=== PATIENT | female | born 1955 | race African-American/Black ===

== ENCOUNTER 2020-02-07 13:50 | Emergency (ER) | payer MEDICAID ==
[~2020-02-07] VITALS: Ht 162.6 cm; Wt 63.5 kg
--- NOTE | 2020-02-07 14:15 | NUR ---
BILATERAL UPPER EXTREMITY X 3 DAYS. PT AAOX4, VSS. RR EVEN & UNLABORED. DENIES CP, SOB, DIZZINESS, N/V/D, WEAKNESS AT THIS TIME. PT SEEN & EVAL'D BY DR. DONOVAN, WILL CONT TO MONITOR.
--- NOTE | 2020-02-07 14:32 | NUR ---
LABS DRAWN BY [employer].
[2020-02-07 14:38] LABS: BASOPHILS % (AUTO) 0.5 % (0.0-2.0); EOSINOPHILS % (AUTO) 0.6 % (0.0-6.0); HEMATOCRIT 34 % (33-45); HEMOGLOBIN 11.1 g/dL (11.5-14.8); LYMPHOCYTES # (AUTO) 1.1 /CMM (0.8-4.8); LYMPHOCYTES % (AUTO) 32.4 % (20.0-44.0); MEAN CORPUSCULAR HGB CONC 33 g/dl (31.0-36.0); MEAN CORPUSCULAR VOLUME 84 fL (82-100); MONOCYTES # (AUTO) 0.3 /CMM (0.1-1.30); MONOCYTES % (AUTO) 9.9 % (2.0-12.0); NEUTROPHILS # (AUTO) 1.9 /CMM (1.8-8.9); NEUTROPHILS % (AUTO) 56.6 % (43.0-81.0); PLATELET COUNT (AUTO) 307 /CMM (150-450); RED BLOOD CELL COUNT(AUTO) 4.04 MIL/uL (4.0-5.2); WHITE BLOOD COUNT (AUTO) 3.4 K/uL (4.3-11.0)
[2020-02-07 14:45] LABS: CALCIUM, SERUM 9.1 mg/dL (8.5-10.1); CARBON DIOXIDE 29 mmol/L (21-32); CHLORIDE 104 mmol/L (98-107); CREATININE 0.8 mg/dL (0.6-1.3); GLUCOSE 78 mg/dL (74-106); SODIUM SERUM 141 mmol/L (136-145); UREA NITROGEN, BLOOD 14 mg/dL (7-18)
[2020-02-07 14:51] LABS: ALANINE AMINOTRANSFERASE 22 U/L (12-78); ALBUMIN 3.4 g/dL (3.4-5.0); ALKALINE PHOSPHATASE 72 U/L (46-116); ASPARTATE AMINOTRANSFERASE 18 U/L (15-37); BILIRUBIN,DIRECT 0.1 mg/dL (0.0-0.2); BILIRUBIN,TOTAL 0.4 mg/dL (0.2-1.0); TOTAL PROTEIN, SERUM 7.6 g/dL (6.4-8.2)
--- NOTE | 2020-02-07 15:38 | NUR ---
COVID TESTING DONE & SENT TO LAB. Patient discharged to home in stable condition. Written and verbal after care instructions given. Patient verbalizes understanding of instruction.
[2020-02-07 15:39] VITALS: BP 132/84
== END 2020-02-07 15:40 | disposition home or self-care (01) ==
LOC: ER 13:50
DX: G56.02 Carpal tunnel syndrome, left upper limb (principal); R91.8 Other nonspecific abnormal finding of lung field; Z20.828 Contact with and (suspected) exposure to other viral communicable diseases; G89.29 Other chronic pain; M54.9 Dorsalgia, unspecified
CPT/HCPCS: 36415; 71045; 80048; 80076; 84484; 85025; 93005; 99285; C9803; U0003

== ENCOUNTER 2020-04-22 17:52 | Emergency (ER) | payer MEDICAID ==
[~2020-04-22] VITALS: Ht 152.4 cm; Wt 61.2 kg
--- NOTE | 2020-04-22 18:09 | NUR ---
SHAWN GUZMAN AT BEDSIDE
--- NOTE | 2020-04-22 18:10 | NUR ---
C/O BILATERAL HAND PAIN X3 MOS. DAUGHTER AT BEDSIDE FOR TRANSLATION. PATIENT A/OX4, AMBULATORY, NEEDS ATTENDED. KEPT COMFORTABLE.
--- NOTE | 2020-04-22 19:34 | NUR ---
Patient discharged to home in stable condition. Written and verbal after care instructions given. Patient verbalizes understanding of instruction.Pt ambulatory with a steady gait
[2020-04-22 19:35] VITALS: BP 148/89
== END 2020-04-22 19:48 | disposition home or self-care (01) ==
LOC: ER 17:56
DX: M19.042 Primary osteoarthritis, left hand (principal); M19.041 Primary osteoarthritis, right hand; M79.642 Pain in left hand; M79.641 Pain in right hand; G89.29 Other chronic pain; M54.9 Dorsalgia, unspecified
CPT/HCPCS: 73130-TC

== ENCOUNTER 2020-05-28 23:45 | Emergency (ER) | payer MEDICAID ==
[~2020-05-28] VITALS: Ht 160 cm; Wt 62.6 kg
--- NOTE | 2020-05-28 23:57 | NUR ---
PT AAOX4. C/O BILATERAL UPER EXTREMITY PAIN X3 MONTHS. DENIES TRAUMA. PLACED ON MONITOR AND PULSE OX. VSS. NO ACUTE DISTRESS NOTED. MD AT BEDSIDE FOR EVAL. AWAITING ORDERS.
[2020-05-29 02:30] VITALS: BP 162/94
--- NOTE | 2020-05-29 02:30 | NUR ---
Patient discharged to home in stable condition. Written and verbal after care instructions given. Patient verbalizes understanding of instruction. pt family member at bedside to take pt home.
== END 2020-05-29 02:31 | disposition home or self-care (01) ==
LOC: ER 23:45
DX: M25.511 Pain in right shoulder (principal); M25.512 Pain in left shoulder; R50.9 Fever, unspecified; G89.29 Other chronic pain; M54.9 Dorsalgia, unspecified
CPT/HCPCS: 73030-TC

== ENCOUNTER 2023-04-13 20:52 | Emergency (ER) | payer MEDICAID ==
[~2023-04-13] VITALS: Ht 154.9 cm; Wt 60.8 kg
[2023-04-13 23:34] VITALS: BP 124/32; TEMP 98.8; O2SAT 100
== END 2023-04-13 23:55 | disposition home or self-care (01) ==
LOC: ER 21:22
DX: G47.00 Insomnia, unspecified (principal); G89.29 Other chronic pain